=== PATIENT | female | born 1985 | race Caucasian/White ===

== ENCOUNTER 2021-12-19 15:35 | Emergency (ER) | payer MEDICAID, OTHER ==
[~2021-12-19] VITALS: Ht 154.9 cm; Wt 56.8 kg
[~2021-12-19 15:35] MED LIST: [UNRECOGNIZED DRUG - OTHER] PO
[2021-12-19 15:38] VITALS: BP 125/79
== END 2021-12-19 16:50 | disposition left against medical advice (07) ==
LOC: EMS 15:35
DX: R55 Syncope and collapse (principal); Z53.21 Procedure and treatment not carried out due to patient leaving prior to being seen by health care provider